=== PATIENT | male | born 1995 | race Two or more races ===

== ENCOUNTER 2020-01-20 17:17 | Emergency (ER) | payer MEDICAID ==
[~2020-01-20] VITALS: Ht 175.3 cm; Wt 86.0 kg
[2020-01-20 20:21] VITALS: BP 135/78
== END 2020-01-20 20:25 | disposition home or self-care (01) ==
LOC: ER 17:17
DX: M54.9 Dorsalgia, unspecified (principal); V49.50XA Passenger injured in collision with unspecified motor vehicles in traffic accident, initial encounter; Y93.9 Activity, unspecified; Y92.410 Unspecified street and highway as the place of occurrence of the external cause
CPT/HCPCS: 99282